=== PATIENT | female | born 1955 | race Caucasian/White ===

== ENCOUNTER 2018-10-30 20:00 | Emergency (ER) | payer OTHER ==
[~2018-10-30] VITALS: Ht 177.8 cm; Wt 109.1 kg
[2018-10-30] MEDS ORDERED: WARF3TAB29 PO (21:22)
[2018-10-30] MEDS ORDERED: FURO40 PO (21:22)
[2018-10-30] MEDS ORDERED: HYD50 PO (21:22)
[2018-10-30] MEDS ORDERED: OMEP20 PO (21:22)
[2018-10-30] MEDS ORDERED: POTA10TA PO (21:22)
[2018-10-30] MEDS ORDERED: DILT60 PO (21:22)
[2018-10-30] MEDS ORDERED: METO50 PO (21:22)
[2018-10-30] MEDS ORDERED: NITR0.4T52 SL (21:22)
[2018-10-30] MEDS ORDERED: [UNRECOGNIZED DRUG - CODE] PO (21:22)
[2018-10-30] MEDS ORDERED: LEVO50 PO (21:22)
[2018-10-30] MEDS ORDERED: DIGO-44 PO (21:22)
[2018-10-30] MEDS ORDERED: CLON.5 PO (21:22)
[2018-10-30 21:58] LABS: BASOPHILS % (AUTO) 1.1 % (0.0-2.0); EOSINOPHILS % (AUTO) 1.3 % (1.0-6.0); HEMATOCRIT 44.4 % (36-46); HEMOGLOBIN 14.9 g/dL (12.0-16.0); LYMPHOCYTES # (AUTO) 1.2 K/uL (1.0-4.8); LYMPHOCYTES % (AUTO) 14.2 % (22.0-44.0); MEAN CORPUSCULAR HEMOGLOBIN 34.5 pg (26.0-34.0); MEAN CORPUSCULAR HGB CONC 33.6 G/dL (31.0-37.0); MEAN CORPUSCULAR VOLUME 103 fL (80-100); MONOCYTES # (AUTO) 0.8 K/uL (0.1-1.0); MONOCYTES % (AUTO) 9.1 % (2.0-9.0); NEUTROPHILS # (AUTO) 6.2 K/uL (1.8-7.7); NEUTROPHILS % (AUTO) 74.3 % (40.0-70.0); PLATELET COUNT (AUTO) 350 K/uL (150-450); RED BLOOD CELL COUNT(AUTO) 4.32 MIL/uL (4.00-5.20)
[2018-10-30 22:15] LABS: ANION GAP 14 mmol/L (8-16); CALCIUM, TOTAL 9.1 mg/dL (8.8-10.5); CARBON DIOXIDE 26 mmol/L (22-29); CHLORIDE 99 mmol/L (98-107); CREATININE 1.17 mg/dL (0.60-1.30); GLOMERULAR FILTR. RATE CALC 47 mL/min (>60); GLUCOSE,RANDOM 116 mg/dL (70-110); POTASSIUM 3.6 mmol/L (3.5-5.1); SODIUM SERUM 139 mmol/L (136-145); UREA NITROGEN, BLOOD 15 mg/dL (7-18)
[2018-10-30 22:19] LABS: ALANINE AMINOTRANSFERASE 14 U/L (12-78); ALBUMIN 3.3 g/dL (3.4-5.0); ALKALINE PHOSPHATASE 112 U/L (46-116); ASPARTATE AMINOTRANSFERASE 20 U/L (15-37); BILIRUBIN,TOTAL 0.9 mg/dL (0.1-1.0); TOTAL PROTEIN, SERUM 8.3 g/dL (6.4-8.2)
[2018-10-30 22:38] LABS: PLATELET MORPHOLOGY COMMENT NORMAL
[2018-10-30 23:44] LABS: SALICYLATE 0.5 mg/dL (2.8-20.0)
[2018-10-30 23:50] LABS: PROTHROMBIN TIME 10.3 SEC (9.4-11.6)
[2018-10-30 23:56] LABS: ACETAMINOPHEN < 2 mcg/mL (10-30)
[2018-10-31 01:42] LABS: AMPHET/METH SCREEN,URINE NEGATIVE (NEGATIVE); BARBITURATE SCREEN, URINE NEGATIVE (NEGATIVE); BENZODIAZEPINES SCREEN,URINE NEGATIVE (NEGATIVE); CANNABINOID SCREEN,URINE NEGATIVE (NEGATIVE); COCAINE SCREEN,URINE NEGATIVE (NEGATIVE); METHADONE SCREEN, URINE NEGATIVE (NEGATIVE); OPIATE SCREEN,URINE NEGATIVE (NEGATIVE)
[2018-10-31 01:43] LABS: PHENCYCLIDINE SCREEN,URINE NEGATIVE (NEGATIVE)
[2018-10-31 02:19] VITALS: BP 151/88
== END 2018-10-31 04:05 | disposition short-term general hospital (02) ==
LOC: EMS 20:02
DX: F32.9 Major depressive disorder, single episode, unspecified (principal); R45.851 Suicidal ideations; I50.9 Heart failure, unspecified; I48.91 Unspecified atrial fibrillation; E03.9 Hypothyroidism, unspecified; F41.9 Anxiety disorder, unspecified; Z88.1 Allergy status to other antibiotic agents; Z79.899 Other long term (current) drug therapy
CPT/HCPCS: 36415; 80053; 80307; 85025; 85610; 85730; 99285; G0480; G0481